=== PATIENT | female | born 1995 | race Hispanic/Latino ===

== ENCOUNTER 2023-01-15 17:04 | Emergency (ER) | payer SELFPAY ==
[2023-01-15] MEDS ORDERED: Lidocaine 4% Cream 5 GM TUBE w/ Tegaderm ONE (17:49)
[2023-01-15] MEDS ORDERED: Boostrix 0.5 ML (Tdap) VIAL (>/=7 yrs of age) ONE (17:49)
[2023-01-15 19:03] LABS: Pregu Control Background? CLEAR/WHITE (CLR/WHITE); Pregu Control Bar Appear? YES (CONTROL BAR)
[2023-01-15 19:05] LABS: Pregnancy Test - Urine (BHCG) Negative (Negative)
== END 2023-01-15 19:50 | disposition home or self-care (01) ==
LOC: NAV ERS 17:04
DX: S01.01XA Laceration without foreign body of scalp, initial encounter (principal); W18.30XA Fall on same level, unspecified, initial encounter; Z23 Encounter for immunization
CPT/HCPCS: 12001; 70450; 81025; 90471; 90715

== ENCOUNTER 2023-01-25 14:01 | Emergency (ER) | payer SELFPAY | END 2023-01-25 14:25 | disposition home or self-care (01) | LOC: NAV ERS 14:01 | DX: S01.01XD Laceration without foreign body of scalp, subsequent encounter (principal); X58.XXXD Exposure to other specified factors, subsequent encounter ==